=== PATIENT | female | born 1940 | race Caucasian/White ===

== ENCOUNTER 2016-06-13 08:37 | Emergency (ER) | payer MEDICARE, OTHER ==
--- NOTE | 2016-06-15 03:45 | ER ---
ADMIT: 06/13/2016 RM/LOC: ER [facility] MR#: [id number] [place], [place] [id number] CHAPIN YADAV [address] [place] [address] Emergency Room Report SEX: F AGE: 76 : 1940 DATE: 06/13/2016 TIME: 0837 hours. Please refer to my T-sheet for complete H and P. Briefly, the patient is a 76- year-old who around midnight had some episode of dizziness. She had been talking on the phone 3 hours, sat up and got dizzy like the room was spinning. She felt maybe her chest was burning a little, that resolved. She had another episode of dizziness when she got up this morning. PHYSICAL EXAMINATION: VITAL SIGNS: Stable. HEENT: Grossly normal. LUNGS: Clear. HEART: Regular. ABDOMEN: Soft. SKIN: No rash. NEURO: Mild horizontal nystagmus. EMERGENCY DEPARTMENT COURSE: CBC was normal. Chemistries normal. INR is 2.38. Troponin negative. EKG is sinus rhythm, rate 90, nonspecific changes. Chest x- ray and CT head, no acute disease. She was given Ativan 1 mg IV, improved. Walked, was a little bit dizzy. I talked to Dr. Tello, she will follow up. ASSESSMENT: 1. Dizziness with some vertiginous findings. 2. Chest discomfort resolved. PLAN: Follow up with Dr. Tello. Meclizine, Valium. Return if worse . Eliazar Gilbert MD/ ayesha JOB #: [id number] CC: Eliazar Gilbert MD, Attending Physician
== END 2016-06-13 11:25 | disposition home or self-care (01) ==
LOC: ER 08:37
DX: R07.89 Other chest pain (principal); R42 Dizziness and giddiness; I10 Essential (primary) hypertension; E78.5 Hyperlipidemia, unspecified; Z86.718 Personal history of other venous thrombosis and embolism; Z79.01 Long term (current) use of anticoagulants; Z79.899 Other long term (current) drug therapy

== ENCOUNTER → 2016-08-07 | Outpatient (CLI) | payer MEDICARE, OTHER | END | disposition home or self-care (01) | LOC: RAD.S 08:38 | DX: Z12.31 Encounter for screening mammogram for malignant neoplasm of breast (principal); R92.1 Mammographic calcification found on diagnostic imaging of breast ==